=== PATIENT | female | born 1955 | race Caucasian/White ===

== ENCOUNTER 2017-12-01 08:01 | Day surgery (SDC) | payer BC, OTHER ==
[~2017-12-01 08:01] MED LIST: KETOROLAC TROMETHAMINE 0.45% 4 DROP/0.4 ML DROPERETTE OD PRN
[2017-12-01] MEDS: TROPICAMIDE 1% OPH SOLN 3 ML OD PRN ×3 (08:55→09:15)
[2017-12-01] MEDS: TETRACAINE HCL 0.5% OPH SOLN 2 ML OD PRN ×4 (08:55→09:42)
[2017-12-01] MEDS: CYCLOPENTOLATE 0.2%/PHENYLEPHRINE 1% OPH SOLN 2 ML OD PRN ×3 (08:55→09:15)
[2017-12-01] MEDS: BESIFLOXACIN HCL 0.6% OPH SUSP 5 ML BOTTLE OD PRN ×4 (08:56→09:54)
[2017-12-01] MEDS ORDERED: MIDAZOLAM 2 MG/2 ML INJ ONE (09:29)
[2017-12-01] MEDS ORDERED: FENTANYL CITRATE INJ/PF 100 MCG/2 ML AMPUL ONE (09:29)
[2017-12-01] MEDS: CHONDR SU A NA/HYALUR INTRAOC KIT (SURGICARE) ONE ×2 (09:40→09:43)
[2017-12-01] MEDS: EPINEPHRINE INJ/PF 1 MG/1 ML AMPULE ONE ×2 (09:40→09:43)
[2017-12-01] MEDS: LIDOCAINE 1% INJ-PF (10 MG/ML) 30 ML SDV ONE ×2 (09:42→09:43)
--- NOTE | 2017-12-01 21:45 | [facility] OPERATIVE REPORT E ---
[facility] Operative Report NAME: KARISSA HENSON AGE: 62Y DATE OF SURGERY: 12/01/2017 ROOM: PREOPERATIVE DIAGNOSIS: CATARACT, RIGHT EYE. POSTOPERATIVE DIAGNOSIS: CATARACT, RIGHT EYE. OPERATION: Cataract extraction with ReSTOR IOL of the right eye. SURGEON: TOREY CASTANEDA M.D. ANESTHESIA: Topical. PROCEDURE: After obtaining appropriate consent, the patient's right eye was prepped and draped in sterile fashion as well as the surgeon in a sterile manner and cataract surgery was started. First a paracentesis blade was used to make a side-port incision. Viscoelastic was used to inflate the anterior chamber. Next a 2.4 mm incision was made with a 2.4 mm blade, clear corneal temporally. A continuous capsulorrhexis was made using a cystotome and Utrata forceps. Following this hydrodissection was carried out to make the lens fully loose and mobile and it was rotated 90 degrees. Following this, a pkpatf-tpi-spndnox technique was used to phacoemulsify the lens with a CDE of 9.97. The remaining cortex was removed with irrigation/aspiration. Provisc was instilled into the capsular bag to inflate the bag. A SN6AD1, 24.5 diopter lens was placed. The remaining viscoelastic material was removed with irrigation/aspiration. Following this, the incision was found to be watertight. Besivance was instilled into the eye and a protective shield was placed over the eye. The patient returned to the postoperative recovery in stable condition. DICTATING PHYSICIAN: TOREY CASTANEDA M.D. 5020M 2140 PHY#: [id number] ID: [id number] JOB#: [id number] ACCT: [id number] cc:TOREY CASTANEDA M.D. >
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
== END 2017-12-01 10:28 | disposition home or self-care (01) ==
LOC: SC 08:01
PROVIDERS: ATTEND Internal Medicine
DX: H25.13 Age-related nuclear cataract, bilateral (principal); E78.00 Pure hypercholesterolemia, unspecified; F17.210 Nicotine dependence, cigarettes, uncomplicated
CPT/HCPCS: 66984; V2788; J2250; J3490 ×2; J0171; J3010; 142

== ENCOUNTER 2017-12-22 08:24 | Day surgery (SDC) | payer BC, OTHER ==
[~2017-12-22 08:24] MED LIST changes: -KETOROLAC TROMETHAMINE 0.45% 4 DROP/0.4 ML DROPERETTE OD PRN; +KETOROLAC TROMETHAMINE 0.45% 4 DROP/0.4 ML DROPERETTE OS PRN
[2017-12-22] MEDS ORDERED: LIDOCAINE 1%/PHENYLEPHRINE 1.5% 1 ML VIAL ONE (10:11)
[2017-12-22] MEDS ORDERED: EPINEPHRINE INJ/PF 1 MG/1 ML AMPULE ONE (10:11)
[2017-12-22] MEDS ORDERED: CHONDR SU A NA/HYALUR INTRAOC KIT (SURGICARE) ONE (10:12)
[2017-12-22] MEDS: TROPICAMIDE 1% OPH SOLN 3 ML OS PRN ×3 (10:24→10:48)
[2017-12-22] MEDS: BESIFLOXACIN HCL 0.6% OPH SUSP 5 ML BOTTLE OS PRN ×4 (10:24→11:40)
[2017-12-22] MEDS: TETRACAINE HCL 0.5% OPH SOLN 2 ML OS PRN ×3 (10:24→11:15)
[2017-12-22] MEDS: CYCLOPENTOLATE 0.2%/PHENYLEPHRINE 1% OPH SOLN 2 ML OS PRN ×3 (10:24→10:48)
[2017-12-22] MEDS ORDERED: MIDAZOLAM 2 MG/2 ML INJ ONE (10:58)
--- NOTE | 2017-12-22 16:16 | [facility] OPERATIVE REPORT E ---
[facility] Operative Report NAME: KARISSA HENSON AGE: 62Y DATE OF SURGERY: 12/22/2017 ROOM: PREOPERATIVE DIAGNOSIS: CATARACT, LEFT EYE. POSTOPERATIVE DIAGNOSIS: CATARACT, LEFT EYE. OPERATION: Cataract extraction with insertion of a ReSTOR IOL of the left eye. SURGEON: TOREY CASTANEDA M.D. ANESTHESIA: Topical. PROCEDURE: After obtaining appropriate consent, the patient's left eye was prepped and draped in sterile fashion as well as the surgeon in a sterile manner and cataract surgery was started. First a paracentesis blade was used to make a side-port incision. Viscoelastic was used to inflate the anterior chamber. Next a 2.4 mm incision was made with a 2.4 mm blade, clear corneal temporally. A continuous capsulorrhexis was made using a cystotome and Utrata forceps. Following this hydrodissection was carried out to make the lens fully loose and mobile and it was rotated 90 degrees. Following this, a yulnqs-xng-ksdinpm technique was used to phacoemulsify the lens with a CDE of 8.37. The remaining cortex was removed with irrigation/aspiration. Provisc was instilled into the capsular bag to inflate the bag. A SN6AD1, 25.0 diopter lens was placed. The remaining viscoelastic material was removed with irrigation/aspiration. Following this, the incision was found to be watertight. Besivance was instilled into the eye and a protective shield was placed over the eye. The patient returned to the postoperative recovery in stable condition. DICTATING PHYSICIAN: TOREY CASTANEDA M.D. 5020M 1609 PHY#: [id number] ID: [id number] JOB#: [id number] ACCT: [id number] cc:TOREY CASTANEDA M.D. >
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
== END 2017-12-22 12:16 | disposition home or self-care (01) ==
LOC: SC 08:24
PROVIDERS: ATTEND Internal Medicine
DX: H25.12 Age-related nuclear cataract, left eye (principal); Z96.1 Presence of intraocular lens; F17.210 Nicotine dependence, cigarettes, uncomplicated
CPT/HCPCS: 66984; V2788; J2250; J3490; J0171; J2370; 142